=== PATIENT | female | born 1980 ===

== ENCOUNTER 2018-12-17 06:10 | Emergency (ER) | payer OTHER ==
[2018-12-17 06:43] VITALS: O2SAT 100
[2018-12-17] MEDS ORDERED: Sodium Chloride 0.9% 1,000 ML IV STA (07:06)
--- NOTE | 2018-12-17 07:10 | ED PDOC ---
Arrival/HPI - General Chief Complaint: Syncope Time Seen by Provider: 12/17/18 06:57 Historian: Patient, Family - History of Present Illness Narrative History of Present Illness (Text): Patient reports syncopal episode this morning. She was lying in bed shortly after waking up, noted right neck pain after lifting weights yesterday. She got up to go to the bathroom and started feeling dizzy. notes that he heard a "thump" and found the patient on the floor. No seizure activity noted. She woke up shortly after and was somewhat confused for about two minutes per , but then became completely AAOx3. He called EMS and patient was transported to the ED. Currently patient only complains of the right neck pain that she felt previously, plus headache and some pain to the right cheek, which she fell on when she passed out. Denies dizziness, vision change, dyspnea, chest pain, abdominal pain, fever, nausea, vomiting, diarrhea, weakness/numbness to the extremities. She states that she has passed out before, when she sees blood. Past Medical History - Provider Review Nursing Documentation Reviewed: Yes RIVERA Report Viewed: Yes - Travel History Have you recently traveled outside [place] w/in the past 3 mons?: No - Past History Past History: No Previous - Infectious Disease Hx of Infectious Diseases: None - Past Medical History Past Medical History: No Previous - Cardiac Hx Cardiac Disorders: No - Pulmonary Hx Respiratory Disorders: No - Psychiatric Hx Substance Use: No - Anesthesia Hx Anesthesia: No Hx Anesthesia Reactions: No Family/Social History - Physician Review Nursing Documentation Reviewed: Yes Family/Social History: Unknown Family HX Smoking Status: Never Smoked Hx Alcohol Use: No Frequency of alcohol use: Socially Hx Substance Use: No Allergies/Home Meds Allergies/Adverse Reactions: Allergies No Known Allergies Allergy (Verified 12/17/18 06:16) Home Medications: Home Meds Medication Instructions Recorded Confirmed No Known Home Med 12/17/18 12/17/18 Review of Systems - Review of Systems Constitutional: Normal Eyes: Normal ENT: Normal Cardiovascular: Normal Gastrointestinal: Normal Genitourinary Female: Normal Musculoskeletal: Neck Pain (R neck) Skin: Normal Neurological: Headache Psychiatric: Normal Physical Exam Vital Signs Reviewed: Yes Vital Signs Temp Pulse Resp BP Pulse Ox 12/17/18 06:19 97.8 F 73 16 106/71 100 Temperature: Afebrile Blood Pressure: Normal Pulse: Regular Respiratory Rate: Normal Appearance: Positive for: Well-Appearing, Non-Toxic, Comfortable Pain Distress: Mild Mental Status: Positive for: Alert and Oriented X 3 - Systems Exam Head: Present: Atraumatic, Normocephalic. No: Contusion, Swelling, Ecchymosis, Abrasion, Laceration Pupils: Present: PERRL Extroacular Muscles: Present: EOMI Conjunctiva: Present: Normal Mouth: Present: Moist Mucous Membranes Neck: Present: Other (R lateral tenderness). No: MIDLINE TENDERNESS Respiratory/Chest: Present: Clear to Auscultation. No: Respiratory Distress, Accessory Muscle Use Cardiovascular: Present: Regular Rate and Rhythm Abdomen: No: Tenderness, Distention, Rebound, Guarding Back: Present: Normal Inspection Upper Extremity: Present: Normal Inspection Lower Extremity: Present: Normal Inspection Neurological: Present: GCS=15 Skin: Present: Warm, Dry, Normal Color. No: Rashes Psychiatric: Present: Alert, Oriented x 3 Medical Decision Making ED Course and Treatment: Labs and EKG done, which were unremarkable. Results discussed with patient/family. 1L NS bolus given. Toradol ivp given for neck pain. Patient remained AAOx3 throughout ED course with no further episodes of syncope. On re-eval HR 85, pulse ox 100%, BP 116 systolic. Patient with no complaints. In no acute distress. Stable for discharge home at this time. Advised NSAIDs for neck pain. - EKG Interpretation EKG Interpretation (Text): 0627- NSR at 67npm, normal axis, normal intervals, no ectopy, normal QRS, no S T/T changes Interpreted by ED Physician: Yes Type: 12 lead EKG - Medication Orders Current Medication Orders: Sodium Chloride (Sodium Chloride 0.9%) 1,000 mls @ 999 mls/hr IV .Q1H1M STA Stop: 12/17/18 08:06 Ketorolac Tromethamine (Toradol) 30 mg IVP STAT STA Stop: 12/17/18 07:07 Disposition/Present on Arrival - Present on Arrival Any Indicators Present on Arrival: No History of DVT/PE: No History of Uncontrolled Diabetes: No Urinary Catheter: No History of Decub. Ulcer: No History Surgical Site Infection Following: None - Disposition Have Diagnosis and Disposition been Completed?: Yes Diagnosis: Syncope Disposition: HOME/ ROUTINE Disposition Time: 09:06 Condition: STABLE Discharge Instructions (ExitCare): Syncope (ED) Additional Instructions: FLAKO MASTERSON, thank you for letting us take care of you today. Your provider was Mayte Pittman MD and you were treated for SYNCOPE. The emergency medical care you received today was directed at your acute symptoms. If you were prescribed any medication, please fill it and take as directed. It may take several days for your symptoms to resolve. Return to the Emergency Department if your symptoms worsen, do not improve, or if you have any other problems. Please contact your doctor or call one of the physicians/clinics you have been referred to that are listed on the Patient Visit Information form that is included in your discharge packet. Bring any paperwork you were given at discharge with you along with any medications you are taking to your follow up visit. Our treatment cannot replace ongoing medical care by a primary care provider outside of the emergency department. Thank you for allowing the [facility] team to be part of your care today. If you had an X-Ray or CT scan: A Radiologist will review the ED reading if any change in treatment is needed we will contact you. If you had a blood, urine, or wound culture: It will take several days for the results, if any change in treatment is needed we will contact you. If you had an STI test: It will take 48 hours for the results. Please call after 1 week if you have not heard back. Forms: [employer] ([place])
[2018-12-17 07:20] LABS: BASO # 0.03 K/mm3 (0.0-2.0); BASO % 0.4 % (0.0-3.0); EOS # 0.2 (0.0-0.7); EOS % 2.7 % (1.5-5.0); HEMOGLOBIN 12.8 g/dL (12.0-16.0); LYMPH # 3.1 (1.2-3.4); MEAN CELL VOLUME 83.6 fl (80.0-105.0); MEAN CORPUSCULAR HEMOGLOBIN 26.9 pg (25.0-35.0); MEAN CORPUSCULAR HGB CONC 32.2 g/dl (31.0-37.0); MEAN PLATELET VOLUME 9.1 fl (7.0-11.0); MONO # 0.6 (0.1-0.6); MONO % 7.6 % (1.0-6.0); RBC 4.76 10^6/uL (3.5-6.1); RED CELL DISTRIBUTION WIDTH 12.9 % (11.5-14.5); WHITE BLOOD COUNT 8.3 10^3/uL (4.5-11.0)
[2018-12-17 07:34] LABS: BLOOD UREA NITROGEN 13 mg/dL (7-21); CALCIUM 8.8 mg/dL (8.4-10.5); GFR NON-AFRICAN AMERICAN > 60
[2018-12-17 08:39] LABS: URINE APPEARANCE CLEAR (CLEAR); URINE BILIRUBIN NEGATIVE (NEGATIVE); URINE BLOOD SMALL (NEGATIVE); URINE COLOR YELLOW (YELLOW); URINE GLUCOSE (UA) NEGATIVE (NEGATIVE); URINE LEUKOCYTE ESTERASE NEGATIVE Leu/uL (NEGATIVE); URINE PROTEIN NEGATIVE mg/dL (<30 mg/dL); URINE UROBILINOGEN 0.2 E.U./dL (<1 E.U./dL)
[2018-12-17 08:44] LABS: URINE BACTERIA MOD /hpf; URINE WBC 0 - 2 /hpf (0-6)
[2018-12-17 08:45] LABS: URINE AMORPHOUS SEDIMENT FEW /hpf
[2018-12-17 09:02] VITALS: BP 116/72; RESP 17
[2018-12-17 09:20] VITALS: PULSE 86; TEMP 97.8
--- NOTE | 2018-12-17 21:07 | CARD ---
APPROVED REPORT Date of service: 12/17/2018 EKG Measurement Heart [id number] <Conclusion> Normal sinus rhythm Normal ECG
== END 2018-12-17 09:19 | disposition home or self-care (01) ==
LOC: ED 06:10
DX: R55 Syncope and collapse (principal)
CPT/HCPCS: 80048; 81001; 81025; 85025; 93005; 96361; 96374; 99285; J1885; J7030

== ENCOUNTER 2018-12-27 13:24 | Outpatient (CLI) | payer OTHER | END 2018-12-27 13:25 | disposition home or self-care (01) | LOC: RAD 13:24 ==

== ENCOUNTER 2019-02-13 16:14 | Outpatient (CLI) | payer OTHER | END 2019-02-13 16:15 | disposition home or self-care (01) | LOC: RAD 16:14 ==